=== PATIENT | male | born 1975 | race Caucasian/White ===

== ENCOUNTER 2017-08-08 09:06 | Emergency (ER) | payer BC ==
[2017-08-08 09:30] VITALS: BP 127/77
[2017-08-08] MEDS ORDERED: Fluorescein Sodium TOPICAL* 1 MG TEST OPHTHALMIC ONE (10:19)
--- NOTE | 2017-08-08 10:39 | UC ---
Eye Complaint HPI - HPI Summary HPI Summary: 42 yo male with right eye redness/prulent d/c and lid edema x 2 weeks no eye pain or photophobia no visual c/o - History of Current Complaint Chief Complaint: UCEye Stated Complaint: EYE ISSUE Hx Obtained From: Patient Onset/Duration: Gradual Onset, Lasting Weeks Timing: Constant Severity Initially: Mild Severity Currently: Moderate Pain Intensity: 0 Location of Injury: Conjunctiva Associated Signs And Symptoms: Positive: Drainage (Purulent), Swelling - some lid edema - Risk Factors Penetrating Injury Risk Factor: Negative Globe Rupture Risk Factors: Negative Acute Glaucoma Risk Factors: Negative Optic Artery Occlusion Risk Factors: Negative - Allergies/Home Medications Allergies/Adverse Reactions: Allergies Allergy/AdvReac Type Severity Reaction Status Date / Time Clindamycin Allergy Severe Hives Verified 08/08/17 09:49 PMH/Surg Hx/FS Hx/Imm Hx GI/ History: Other Other GI/ History: Crohn's disease - Surgical History Surgical History: Yes Surgery Procedure, Year, and Place: ileocolectomy with ileostomy and mucous fistula July 2013, 4 additional abdominal surgeries r/t Crohn's - Family History Known Family History: Positive: Cardiac Disease, Hypertension - Social History Alcohol Use: Rare Substance Use Type: None Smoking Status (MU): Heavy Every Day Tobacco Smoker Type: Cigarettes Amount Used/How Often: 1 ppd Have You Smoked in the Last Year: Yes When Did the Patient Quit Smoking/Using Tobacco: 07/04/13 Household Exposure Type: Cigarettes - Immunization History Most Recent Influenza Vaccination: Fall 2012 Most Recent Tetanus Shot: 2008 Most Recent Pneumonia Vaccination: NONE Review of Systems Constitutional: Negative Skin: Negative Eyes: Drainage, Eye Redness ENT: Negative Respiratory: Negative Cardiovascular: Negative Gastrointestinal: Negative Genitourinary: Negative Motor: Negative Neurovascular: Negative Musculoskeletal: Negative Neurological: Negative Psychological: Negative Is Patient Immunocompromised?: No All Other Systems Reviewed And Are Negative: Yes Physical Exam Triage Information Reviewed: Yes Appearance: Well-Appearing, No Pain Distress, Well-Nourished Vital Signs: Initial Vital Signs Temp 97.5 F 08/08/17 09:25 Pulse 81 08/08/17 09:25 Resp 18 08/08/17 09:25 BP 127/77 08/08/17 09:25 Pulse Ox 97 08/08/17 09:25 Eyes: Positive: Conjunctiva Inflamed - R, Discharge - R, Other: - eomi/perrrl, neg flourescein staining defect, slight lid edema, ectropion right lower eyelid ENT: Positive: Hearing grossly normal, TMs normal, Uvula midline. Negative: Nasal congestion, Nasal drainage, Sinus tenderness Neck: Positive: Supple, Nontender, No Lymphadenopathy Respiratory: Positive: Lungs clear, Normal breath sounds, No respiratory distress, No accessory muscle use Cardiovascular: Positive: RRR, No Murmur Bowel Sounds: Positive: Present Musculoskeletal: Positive: ROM Intact, No Edema Neurological: Positive: Alert Psychological Exam: Normal Skin Exam: Normal Eye Complaint Course/Dx - Differential Dx/Diagnosis Provider Diagnoses: conjunctivis Discharge - Discharge Plan Condition: Stable Disposition: HOME Prescriptions: Polymyx/Trimethoprim OPTH* [Polytrim OPHTH*] 1 - 2 drop RIGHT EYE QID #1 btl Patient Education Materials: Conjunctivitis (ED) Referrals: Domingo Carmichael MD [Medical Doctor] - 4 Days Additional Instructions: I think you have conjunctivitis Follow up DOE if you develop eye pain or light sensitivity you may have an eye lid issue called ectropian see branding specialist early next week if not better Crohn's disease can be associated with eye problems and if this does not promptly resolve needs to be seen by specialist
== END 2017-08-08 10:56 | disposition home or self-care (01) ==
LOC: UCEAST 09:06
DX: H10.31 Unspecified acute conjunctivitis, right eye (principal); K50.90 Crohn's disease, unspecified, without complications; Z88.1 Allergy status to other antibiotic agents; F17.210 Nicotine dependence, cigarettes, uncomplicated
CPT/HCPCS: 99212; A9270-GY; G0463